=== PATIENT | female | born 1970 | race Caucasian/White ===

== ENCOUNTER 2024-08-28 08:09 | Outpatient (CLI) | payer BC | END 2024-08-28 08:10 | disposition home or self-care (01) | LOC: CSHMAMMO 08:09 | PROVIDERS: ATTEND Internal Medicine | DX: Z12.31 Encounter for screening mammogram for malignant neoplasm of breast (principal); M81.0 Age-related osteoporosis without current pathological fracture; M85.851 Other specified disorders of bone density and structure, right thigh; M85.852 Other specified disorders of bone density and structure, left thigh; Z78.0 Asymptomatic menopausal state; Z98.82 Breast implant status | CPT/HCPCS: 77063; 77067; 77080 ==